=== PATIENT | female | born 1980 | race Caucasian/White ===

== ENCOUNTER 2017-08-02 01:46 | Emergency (ER) | payer SELFPAY ==
[2017-08-02 02:06] VITALS: BP 121/70; PULSE 80; RESP 20; TEMP 97.8; O2SAT 100
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
== END 2017-08-02 02:42 | disposition home or self-care (01) ==
LOC: C.ER 01:46
DX: S40.021A Contusion of right upper arm, initial encounter (principal); Y04.0XXA Assault by unarmed brawl or fight, initial encounter